=== PATIENT | male | born 1970 | race Caucasian/White ===

== ENCOUNTER 2018-10-16 21:39 | Emergency (ER) | payer OTHER ==
[2018-10-16] MEDS ORDERED: GLUCAGON,HUMAN RECOMB 1 MG INJ IV ONE (22:02)
--- NOTE | 2018-10-16 22:05 | ER Document Report ---
ED Medical Screen (RME) - General Chief Complaint: Swallowed Foreign Body Stated Complaint: THROAT PROBLEM Time Seen by Provider: 10/16/18 21:58 Notes: 47-year-old male with suspected esophageal obstruction from food. States he tried drinking root appeared to pass it but pure root beer came back out. He did vomit a little bit of food out but still cannot pass anything. Reports history of difficulty swallowing food but has never had an obstruction or EGD in the past. He reports pain with deep breath. Denies symptoms otherwise. TRAVEL OUTSIDE OF THE [place] IN LAST 30 DAYS: No - Related Data Allergies/Adverse Reactions: clarithromycin [From Biaxin] Allergy (Verified 11/26/15 09:50) Past Medical History - Past Medical History Cardiac Medical History: Reports: Hx Hypercholesterolemia Renal/ Medical History: Denies: Hx Peritoneal Dialysis Musculoskeltal Medical History: Reports Hx Musculoskeletal Trauma Physical Exam - Vital signs Vitals: Temp Pulse Resp BP Pulse Ox 98.0 F 70 20 144/92 H 97 10/16/18 21:47 10/16/18 21:47 10/16/18 21:47 10/16/18 21:47 10/16/18 21:47 - General General appearance: Other - Appears somewhat uncomfortable, spitting, eyes watering - Respiratory Respiratory status: No respiratory distress Breath sounds: Normal. No: Decreased air movement Course - Re-evaluation Re-evalutation: I have greeted and performed a rapid initial assessment of this patient. A comprehensive ED assessment and evaluation of the patient, analysis of test results and completion of the medical decision making process will be conducted by additional ED providers. - Vital Signs Vital signs: Temp Pulse Resp BP Pulse Ox 98.0 F 70 20 144/92 H 97 10/16/18 21:47 10/16/18 21:47 10/16/18 21:47 10/16/18 21:47 10/16/18 21:47
--- NOTE | 2018-10-16 22:47 | ER Document Report ---
ED General - General Chief Complaint: Swallowed Foreign Body Stated Complaint: THROAT PROBLEM Time Seen by Provider: 10/16/18 21:58 Primary Care Provider: [facility] [Provider Group] - Follow up in 3-5 days (primary care. ) JUSTIN TAY MD [ACTIVE STAFF] - Follow up in 3-5 days Notes: Patient is a 47-year-old male that presents to the emergency department for chief complaint of food stuck in his esophagus. Patient states around 530 this evening he was eating chicken breast, and shortly after felt like it got stuck in his throat. He was not choking, but felt like he could not drink anything afterwards and had significant pain from the bottom of his sternum up about jail. Describes as an aching and gnawing type pain. He tried drinking some Gatorade and eating a hotdog later on, but it came right back up. Since he has had continued discomfort in that same area. He currently rates his pain as a 4 out of 10 describes as a constant aching sensation. He denies any history of this in the past, states that he is a former smoker, and has had some reflux disease in the past. He states is having a hard time keeping even his saliva down at this time. He denies having any difficulty breathing, recent illness. Past Medical History: Denies chronic medical conditions Past Surgical History: Denies surgical history Social History: Admits to rare alcohol use, and former smoker. Denies illicit drug use. Family History: Reviewed and noncontributory for presenting illness Allergies: Reviewed, see documented allergy list. REVIEW OF SYSTEMS: Other than noted above, the 12 point review of systems was reviewed with the patient and were negative, all pertinent findings are included in the HPI. PHYSICAL EXAMINATION: Vital signs reviewed, nursing noted reviewed. GENERAL: Patient appears uncomfortable on exam, but in no acute distress. HEAD: Atraumatic, normocephalic. EYES: Eyes appear normal, extraocular movements intact, sclera anicteric, conjunctiva are normal. ENT: nares patent, oropharynx clear without exudates. Moist mucous membranes. NECK: Normal range of motion, supple without lymphadenopathy LUNGS: Breath sounds clear to auscultation bilaterally and equal. No wheezes rales or rhonchi. HEART: Regular rate and rhythm without murmurs ABDOMEN: Soft, mild left upper quadrant tenderness to palpation, normoactive bowel sounds. No rebound, guarding, or rigidity. No masses appreciated. EXTREMITIES: Nontender, good range of motion, no pitting or edema. NEUROLOGICAL: No focal neurological deficits. Moves all extremities spontaneously Motor and sensory grossly intact on exam. PSYCH: Normal mood, normal affect. SKIN: Warm, Dry, normal turgor, no rashes or lesions noted on exposed skin TRAVEL OUTSIDE OF THE [place] IN LAST 30 DAYS: No - Related Data Allergies/Adverse Reactions: clarithromycin [From Biaxin] Allergy (Verified 11/26/15 09:50) Past Medical History - Social History Smoking Status: Former Smoker Family History: Reviewed & Not Pertinent Patient has suicidal ideation: No Patient has homicidal ideation: No - Past Medical History Cardiac Medical History: Reports: Hx Hypercholesterolemia Renal/ Medical History: Denies: Hx Peritoneal Dialysis Musculoskeletal Medical History: Reports Hx Musculoskeletal Trauma Physical Exam - Vital signs Vitals: Temp Pulse Resp BP Pulse Ox 98.0 F 70 20 144/92 H 97 10/16/18 21:47 10/16/18 21:47 10/16/18 21:47 10/16/18 21:47 10/16/18 21:47 Course - Re-evaluation Re-evalutation: Patient seen and examined, vital signs reviewed, on exam the patient did appear uncomfortable, but no acute distress, was hemodynamically stable, he was given glucagon in triage, without improvement of his symptoms, still unable to maintain his secretions, I placed a call to the on-call surgeon, Dr. Momin, who graciously came to the emergency department to see the patient, to set up for endoscopy to treat the patient's food impaction. Patient was agreeable with this plan of care. Patient underwent endoscopy in the emergency department, with Dr. Momin, patient tolerated the procedure well, he did have a large food bolus, that was removed, noted to have a mild stricture, patient afterwards, was monitored post procedurally, and did quite well, was able to tolerate p.o., discharged home to follow-up with gastroenterology due to the stricture, he would need follow-up. He was prescribed omeprazole, also instructed to take ranitidine, follow clear liquid diet for the next few days, and to follow-up with Dr. Momin regarding biopsies that were taken. Patient was agreeable with plan of care and discharged home. - Vital Signs Vital signs: Temp Pulse Resp BP Pulse Ox 98.0 F 70 13 112/78 96 10/16/18 21:47 10/16/18 21:47 10/17/18 01:10 10/17/18 02:01 10/17/18 01:44 Discharge - Discharge Clinical Impression: Food impaction of esophagus Qualifiers: Encounter type: initial encounter Qualified Code(s): T18.128A - Food in esophagus causing other injury, initial encounter Condition: Stable Disposition: HOME, SELF-CARE Instructions: Esophageal Food Impaction ([facility]) Additional Instructions: Please follow-up with gastroenterology, the number has been listed with your paperwork. Over the next 2 to 3 days, stick with a liquid diet, as you have some irritation to your esophagus from this event. And then after that, consume small meals, make sure to chew your food completely before swallowing. We recommend you start an antacid medication, you have been prescribed an antacid medication, called omeprazole, this can be picked up at any pharmacy, you can also take alternatively [id number] ranitidine 150 mg twice daily, this is the generic version of Zantac. Biopsies were taken by Dr. Momin, and he will follow-up with you on these results. Prescriptions: RX: Omeprazole 40 mg PO DAILY #30 capsule. Referrals: JUSTIN TAY MD [ACTIVE STAFF] - Follow up in 3-5 days [facility] [Provider Group] - Follow up in 3-5 days (primary care. )
[2018-10-16] MEDS ORDERED: DIPHENHYDRAMINE HCL 50 MG/ML VIAL ONE (23:36)
[2018-10-16] MEDS ORDERED: ONDANSETRON HCL INJ/PF 4 MG/2 ML SDV ONE (23:36)
[2018-10-16] MEDS ORDERED: NALOXONE HCL INJ/PF 0.4 MG/1 ML SDV ONE (23:37)
[2018-10-16] MEDS ORDERED: FLUMAZENIL INJ 0.5 MG/5 ML VIAL ONE (23:37)
[2018-10-16] MEDS ORDERED: FENTANYL CITRATE INJ/PF 100 MCG/2 ML AMPUL ONE (23:37)
[2018-10-16] MEDS ORDERED: EPINEPHRINE INJ 1 MG/10 ML DISP.SYRIN ONE (23:38)
[2018-10-16] MEDS ORDERED: GLUCAGON,HUMAN RECOMB 1 MG INJ ONE (23:38)
[2018-10-17] MEDS: MIDAZOLAM 2 MG/2 ML INJ ONE ×4 (00:10→00:31)
--- NOTE | 2018-10-17 00:57 | Operative Report ---
Operative Report DATE OF SURGERY: 10/17/18 PREOPERATIVE DIAGNOSIS: Retained food bolus; rule out esophageal stricture POSTOPERATIVE DIAGNOSIS: Same with gastroesophageal reflux disease and pharyngitis OPERATION: 1. Esophagogastroduodenoscopy. 2. Mechanical disimpaction of distal esophageal retained food bolus. 3. Biopsy of hypopharynx mucosa SURGEON: WINNIE OSBORN ANESTHESIA: Moderate Sedation TISSUE REMOVED OR ALTERED: Biopsy of the hypopharynx COMPLICATIONS: None ESTIMATED BLOOD LOSS: Scant INTRAOPERATIVE FINDINGS: See below PROCEDURE: The patient is a 47-year-old male with a history of dysphasia who presents emergency department complaining of inability to digest chicken and rice. He was evaluated emergency department found to be hemodynamically stable but unable to keep his saliva down. Surgery was consulted, endoscopy team brought in and the patient was set up for upper endoscopy, food bolus Surgical plan surgical timeout were conducted. The patient was placed in room 2 of the trauma day in the emergency department. He was placed in semirecumbent position left lateral. Mouthpiece inserted and appropriate level of sedation achieved Using a flexible pediatric upper endoscope, scope through the oropharynx, down the esophagus into the midesophagus. There were multiple fragmented areas of retained food consistent with chicken. Multiple insertions and re-insertions of the esophagus scope were performed, use of Rivera that to extract, and break up the chicken food bolus. Eventually we broke through the obstruction, got through the GE junction into the stomach. The GE junction was at 38 cm from the incisor. There was a moderate amount of retained food in the body of the stomach. There was no evidence of ulceration tumor or other pathology in the stomach. The scope was advanced to the duodenum. The pylorus was narrow but otherwise normal. The first and second portion of the duodenum were unremarkable. This evidence brought back through into the stomach. The scope was retroflexed to look at the GE junction pain. There was a small hiatal hernia. The scope was withdrawn through the esophagus again. By now food fragments had passed into the stomach. There was evidence of GERD with mild bleeding site of obstruction which was in fact was the GE junction. There is a suggestion of a mild stricture. The remainder the esophagus was unremarkable. Photos were taken Of note as the scope was being brought out of the patient's upper esophagus, and around the hypopharynx, the posterior pharyngeal wall was very nodular. Photos were taken and a cold forceps biopsy was obtained as well. This was sent to pathology for permanent analysis. The scope was withdrawn for patient oropharynx. Tolerated the procedure well. Impression 1. Retained food bolus distal esophagus now dislodged . Gastroesophageal reflux disease with mild stricture GE junction 3. Hypopharyngeal mucosal nodules, rule out inflammation versus malignancy post biopsy Disposition 1. GERD management including head of bed up, smoke cessation, diet modif ication, H2 batsheva versus proton pump inhibitor 2. Patient follow-up with gastroenterology in outpatient basis 3. We will contact patient with the results of tissue biopsy of the hypopharynx. 4. The above was discussed with patient significant other, as well Dr. Blair, ER physician.
[2018-10-17 02:08] VITALS: BP 112/78
--- NOTE | 2018-10-17 07:09 | RADIOLOGY REPORT (SQ) ---
EXAM DESCRIPTION: XR CHEST 2 VIEWS COMPLETED DATE/TME: Not provided CLINICAL HISTORY: pain, vomiting, possible esophageal obstruction COMPARISON: 11/22/2015 FINDINGS: Frontal and lateral views of the chest. Low lung volumes. The cardiomediastinal silhouette has normal size and contour. No consolidation, pneumothorax, or pleural effusion. No displaced rib fractures identified. Upper abdominal soft tissues are unremarkable. IMPRESSION: 1. No acute pulmonary process identified.
== END 2018-10-17 02:11 | disposition home or self-care (01) ==
LOC: ER 21:39
PROC: 0DC58ZZ Extirpation of Matter from Esophagus, Via Natural or Artificial Opening Endoscopic (ICD-10-PCS; principal; 2018-10-16 23:34)
PROC: 0DB68ZZ Excision of Stomach, Via Natural or Artificial Opening Endoscopic (ICD-10-PCS; 2018-10-16 23:34)
DX: T18.128A Food in esophagus causing other injury, initial encounter (principal); Z87.891 Personal history of nicotine dependence
CPT/HCPCS: 99284; 96374; 88305 ×2; 71046; 43247; 43239; J2250; J3010; J1610; J0171; J1200; J2310; J2405; J3490